=== PATIENT | female | born 1945 | race Caucasian/White ===

== ENCOUNTER 2018-05-18 09:43 | Day surgery (SDC) | payer MEDICARE, OTHER ==
[2018-05-18] MEDS ORDERED: PROPOFOL 40 ML (10:27)
== END 2018-05-18 11:41 | disposition home or self-care (01) ==
LOC: GIL 09:43
DX: Z12.11 Encounter for screening for malignant neoplasm of colon (principal); K64.8 Other hemorrhoids; K21.9 Gastro-esophageal reflux disease without esophagitis; I10 Essential (primary) hypertension; E78.5 Hyperlipidemia, unspecified
CPT/HCPCS: 43239; 88305